=== PATIENT | male | born 1990 | race Caucasian/White ===

== ENCOUNTER 2017-10-08 07:57 | Emergency (ER) | payer OTHER ==
[~2017-10-08] VITALS: Ht 177.8 cm; Wt 88.0 kg
[2017-10-08 10:32] VITALS: BP 120/81
== END 2017-10-08 10:42 | disposition home or self-care (01) ==
LOC: EME 07:57
DX: T46.5X1A Poisoning by other antihypertensive drugs, accidental (unintentional), initial encounter (principal); T43.221A Poisoning by selective serotonin reuptake inhibitors, accidental (unintentional), initial encounter; I10 Essential (primary) hypertension; F32.9 Major depressive disorder, single episode, unspecified; F41.9 Anxiety disorder, unspecified; F17.200 Nicotine dependence, unspecified, uncomplicated
CPT/HCPCS: 99281; 99284

== ENCOUNTER 2017-10-29 20:09 | Emergency (ER) | payer OTHER ==
[~2017-10-29] VITALS: Ht 177.8 cm; Wt 84.4 kg
[2017-10-29 21:03] VITALS: BP 143/83
[2017-10-29] MEDS ORDERED: LIDODERM 5% P1 PATCH TD (23:20)
[2017-10-29] MEDS ORDERED: NORCO 5/3251 TABLET PO (23:20)
[2017-10-29] MEDS ORDERED: FLEXERIL10 MG PO (23:20)
== END 2017-10-30 | disposition home or self-care (01) ==
LOC: EME 20:09
DX: S29.012A Strain of muscle and tendon of back wall of thorax, initial encounter (principal); X58.XXXA Exposure to other specified factors, initial encounter; F17.200 Nicotine dependence, unspecified, uncomplicated
CPT/HCPCS: 99281; 99284